=== PATIENT | female | born 1995 | race Caucasian/White ===

== ENCOUNTER 2017-01-28 22:58 | Emergency (ER) | payer OTHER ==
[2017-01-28 23:58] LABS: BASOPHIL 0.2 % (0-2); EOSINOPHIL 0.1 % (0-5); HCT 38.6 % (37.0-47.0); HGB 13.2 g/dl (12.5-16.0); LYMPHOCYTE 5.2 % (15-48); MCH 28.4 pg (25.0-31.0); MCHC 34.2 g/dL (32.0-36.0); MONOCYTE 3.6 % (0-12); MPV 10.9 fL (6.0-9.5); NEUTROPHIL 90.9 % (41-80); PLT 309 K/uL (150-400); RBC 4.65 M/uL (4.20-5.40); RDW 13.1 % (11.5-14.0)
[2017-01-29 00:01] LABS: WBC 19.2 K/uL (4.0-10.5)
[2017-01-29 00:18] LABS: CREATININE 0.8 mg/dL (0.5-1.0); POTASSIUM 3.5 mmol/L (3.5-5.1)
== END 2017-01-29 00:43 | disposition home or self-care (01) ==
LOC: FER 22:58
PROVIDERS: Emergency Medicine
DX: J02.9 Acute pharyngitis, unspecified (principal); R50.9 Fever, unspecified; R42 Dizziness and giddiness
CPT/HCPCS: 36415; 80048; 85025; 87450; 87804; 87899; 99283

== ENCOUNTER 2022-01-21 13:12 | Emergency (ER) | payer OTHER ==
[~2022-01-21 13:12] MED LIST: VOLTAREN **OUT50 MG PO
[2022-01-21 14:15] LABS: BASOPHIL 0.6 % (0-2); EOSINOPHIL 2.5 % (0-5); HCT 41.1 % (37.0-47.0); HGB 13.4 g/dl (12.5-16.0); LYMPHOCYTE 16.4 % (15-48); MCH 29.3 pg (25.0-31.0); MCHC 32.6 g/dL (32.0-36.0); MCV 89.7 fL (78.0-100.0); MONOCYTE 4.2 % (0-12); MPV 12.1 fL (6.0-9.5); NEUTROPHIL 75.9 % (41-80); NRBC 0; PLT 263 K/uL (150-400); RBC 4.58 M/uL (4.20-5.40); RDW 12.2 % (11.5-14.0); WBC 11.4 K/uL (4.0-10.5)
[2022-01-21 14:17] LABS: BILIRUBIN NEGATIVE (NEGATIVE); BLOOD NEGATIVE Ery/uL (NEGATIVE); CLARITY CLEAR (CLEAR); COLOR YELLOW (YELLOW); GLUCOSE (U) NORMAL (NORMAL); LEUKOCYTES NEGATIVE Leu/uL (NEGATIVE); NITRITE NEGATIVE (NEGATIVE); PROTEIN NEGATIVE (NEGATIVE); SPECIFIC GRAVITY <=1.005 (1.001-1.030); UROBILINOGEN 0.2 mg/dL (0.2-1.0)
[2022-01-21 14:33] LABS: BUN/CREAT RATIO (CALC) 11.4 RATIO; CREATININE 0.7 mg/dL (0.51-0.95); POTASSIUM 3.9 mmol/L (3.5-5.1)
[2022-01-21 15:55] LABS: CORONAVIRUS 2019 SARS-COV-2 NEGATIVE (NEGATIVE); INFLUENZA A NAA NEGATIVE (NEGATIVE)
[2022-01-21] MEDS ORDERED: IBUPROFEN800 MG PO (17:41)
[2022-01-21] MEDS ORDERED: BENTYL10 MG PO (17:41)
== END 2022-01-21 18:14 | disposition home or self-care (01) ==
LOC: FER 13:12
PROVIDERS: Nurse Practitioner Family
DX: B34.9 Viral infection, unspecified (principal); R10.84 Generalized abdominal pain; Z20.822 Contact with and (suspected) exposure to COVID-19
CPT/HCPCS: 36415; 80048; 81003; 85025; J7030; Q9967; U0002